=== PATIENT | female | born 1990 | race Caucasian/White ===

== ENCOUNTER 2020-03-09 07:49 | Inpatient (IN) | payer OTHER, SELFPAY ==
[2020-03-09] VITALS (106 sets, daily range): BP systolic 103–142; BP diastolic 42–120; PULSE 82–152; RESP 18; TEMP 36.7–36.9; O2SAT 98–100; BMI 24.2
--- NOTE | 2020-03-09 08:06 | PM.IMHP ---
H&P: HPI History of Present Illness Chief complaint: leaking Narrative: Camila Barron is a 30 year old female whose last menstrual period is unknown, but EDC is 03/20/2020, based on a 9 week ultrasound presents at 38 weeks gestation in active labor. She spontaneous ruptured at 6:45 a.m. and she is positive for group B strep. Her has been complicated by anxiety she has been on fluoxetine 20 mg and move that up to 40 she also takes Xanax 0.2 0.5 p.r.n. b.i.d. she is also Rh negative and will require RhoGAM workup Review of Systems Review of Systems: All systems reviewed & are unremarkable except as noted in HPI and below Meds Home Medications and Allergies Allergies Allergy/AdvReac Type Severity Reaction Status Date / Time sulfamethoxazole Allergy Mild Rash Verified 10/09/17 11:19 trimethoprim Allergy Mild Rash Verified 10/09/17 11:19 Exam Const: General: no acute distress Eyes: General: appearance normal, both eyes and all related structures Neck: Neck: supple and no JVD Thyroid: thyroid normal Resp: Effort & Inspection: normal respiratory effort Auscultation: clear to auscultation bilaterally Cardio: Rate: regular rate Rhythm: regular rhythm GI: Inspection: normal to inspection (Gravid uterus. heart tones are reassuring) : General: Yes other (Cervix by RN exam 3cm. Clear fluid seen. FHTs are reassuring) Skin: General skin exam: no rashes or lesions noted Extrem: General: normal to inspection and no edema Psych: Mental Status: mental status grossly normal Affect: normal affect Assessment and Plan Additional Plan Impression: Term with spontaneous rupture membranes. Positive group B strep. Plan: Spontaneous vaginal delivery is expected. Group B strep prophylaxis will be undertaken. Pitocin augmentation will be considered
[2020-03-09] MEDS: AMPICILLIN 2 GM/NS 100 ML 2 GM/100 ML BAG IVPB (08:40)
[2020-03-09] MEDS: LACTATED RINGERS 1,000 ML 125 ML IV CONT ×2 (08:40→11:00)
--- NOTE | 2020-03-09 08:53 | LDADM ---
This patient, Camila Barron, was admitted to Labor/Delivery/Recovery 106 on 03/09/20 at 07:50. Plans for labor, pain management and were discussed with patient. Patient/family oriented to hospital policies and general routines including ID bracelet, bed and alarms, visiting hours, pain management, procedures, bathroom and other care routines, personal items, smoking policy, room service/diet and guest tray routines, security routines, and visiting hours. Patient/Family are encouraged to report perceived risks to care and to ask questions if they do not understand what they are told or what they should do. See OBIX for further documentation.
[2020-03-09 09:20] LABS: Basophils Absolute Auto 0.1 K/mm3 (0.0-0.1); Basophils Percent Auto 0.5 % (0.2-1.2); Eosinophils Absolute Auto 0.1 K/mm3 (0-0.3); Eosinophils Percent Auto 0.9 % (0-4.4); Hematocrit 32.8 % (37.0-47.0); Hemoglobin 10.4 g/dL (12.0-15.0); Immature Granulocyte Absolute 0.24 K/mm3 (0.00-0.031); Immature Granulocyte Percent A 1.9 % (0-0.5); Lymphocytes Absolute Auto 2.89 K/mm3 (0.9-3.2); Lymphocytes Percent Auto 22.6 % (18.3-44.2); Mean Corpuscular HGB Conc 31.7 g/dl (32-36); Mean Corpuscular Hemoglobin 26.8 pg (26-34); Mean Corpuscular Volume 84.5 fl (80-100); Mean Platelet Volume 11.9 fl (7.4-10.4); Monocytes Absolute Auto 1.2 K/mm3 (0.1-0.6); Monocytes Percent Auto 9.6 % (2.6-8.5); Neutrophils Absolute Auto 8.3 K/mm3 (1.3-6.7); Neutrophils Percent Auto 64.5 % (45.5-73.1); Platelet Count Result 238 k/mm3 (150-375); Red Blood Count 3.88 M/mm3 (4.2-5.4); Red Cell Distribution Width 14.1 % (11.5-14.5); White Blood Count 12.8 K/mm3 (4.5-10.0)
[2020-03-09] MEDS: AMPICILLIN 1 GM/NS 50 ML 1 GM/50 ML BAG IVPB (12:11)
[2020-03-09] MEDS: OXYTOCIN 30 UNITS/NS 500 ML 30 UNITS/500 ML BAG IV CONT (12:35)
--- NOTE | 2020-03-09 13:02 | PM.OBPNVD ---
OB - PN: Subj Subjective Date/time seen: 03/09/20 13:02 cx 4 by rn exam fhts reassuring epidural in OB - PN: Obj Data Labs CBC & Chem 7: 03/09/20 08:30 Labs: Laboratory Results - last 24 hr 03/09/20 03/09/20 08:30 08:30 WBC 12.8 H RBC 3.88 L Hgb 10.4 L Hct 32.8 L MCV 84.5 MCH 26.8 MCHC 31.7 L RDW 14.1 Plt Count 238 MPV 11.9 H Immature Gran % (Auto) 1.9 H Neut % (Auto) 64.5 Lymph % (Auto) 22.6 [place] % (Auto) 9.6 H Eos % (Auto) 0.9 Baso % (Auto) 0.5 Lymph # (Auto) 2.89 [place] # (Auto) 1.2 H Eos # (Auto) 0.1 Baso # (Auto) 0.1 Abs Immat Gran (auto) 0.24 H Absolute Neuts (auto) 8.3 H Absolute Nucleated RBC 0.0 Nucleated RBC % 0.0 Blood Type A Negative Antibody Screen Negative OB - PN A/P Time Spent With Patient Time: Total time spent is greater than 50% in coordination of care (as documented) at patient's floor/unit and/or counseling patient:
--- NOTE | 2020-03-09 15:25 | P.PNOB_ITS ---
OB - PN: Subj Subjective Date/time seen: 03/09/20 15:25 cx compltete fhts reassuring OB - PN: Obj Data Labs CBC & Chem 7: 03/09/20 08:30 Labs: Laboratory Results - last 24 hr 03/09/20 03/09/20 08:30 08:30 WBC 12.8 H RBC 3.88 L Hgb 10.4 L Hct 32.8 L MCV 84.5 MCH 26.8 MCHC 31.7 L RDW 14.1 Plt Count 238 MPV 11.9 H Immature Gran % (Auto) 1.9 H Neut % (Auto) 64.5 Lymph % (Auto) 22.6 [place] % (Auto) 9.6 H Eos % (Auto) 0.9 Baso % (Auto) 0.5 Lymph # (Auto) 2.89 [place] # (Auto) 1.2 H Eos # (Auto) 0.1 Baso # (Auto) 0.1 Abs Immat Gran (auto) 0.24 H Absolute Neuts (auto) 8.3 H Absolute Nucleated RBC 0.0 Nucleated RBC % 0.0 Blood Type A Negative Antibody Screen Negative OB - PN A/P Time Spent With Patient Time: Total time spent is greater than 50% in coordination of care (as documented) at patient's floor/unit and/or counseling patient:
--- NOTE | 2020-03-09 15:55 | PM.OBPRVD ---
OB - Delivery Note Procedure Delivery date: 03/09/20 Intrapartal events: None Induction method: none Delivery augmentation: pitocin Delivery monitor: external FHT Route of delivery: Episiotomy description: None Laceration description: Perineal - 1st Degree Delivery repair: vicryl Specimen: No Estimated blood loss (mL): 157 Anesthesia type: Epidural Disposition: floor Complications: amp x2 for gbs Baby Date of : 03/09/20 Time of : 15:42 Weeks of gestation at delivery: 38 gender: Male Weight (pounds): 6 Weight (ounces): 14 presentation: vertex position: Right Occiput Anterior Placenta delivery description: Spontaneous cord vessel description: 3 Vessels score one minute: 9 score five minutes: 9
[2020-03-09] MEDS: METHYLERGONOVINE MALEATE 0.2 MG/ML VIAL IM (15:57)
[2020-03-09] MEDS: MISOPROSTOL 200 MCG TABLET 800 MCG (16:18)
[2020-03-09] MEDS: ONDANSETRON INJ 4 MG/2 ML VIAL IV PUSH (17:08)
[2020-03-09] MEDS: IBUPROFEN 600 MG TABLET PO (18:12)
--- NOTE | 2020-03-09 19:44 | OBPPTRN ---
Patient transferred to post room #288 via wheelchair. Support person present. Oriented to unit, room, information board, rooming in, admission packet and security measures. Patient verbalizes understanding. arrived in crib with patient to floor
[2020-03-09] MEDS: ALPRAZOLAM 0.5 MG TABLET PO (19:52)
[2020-03-10] MEDS: IBUPROFEN 600 MG TABLET PO ×4 (00:45→20:54)
[2020-03-10] MEDS: ACETAMINOPHEN 325 MG TABLET 650 MG PO (04:52)
[2020-03-10 05:21] LABS: Hematocrit 26.3 % (37.0-47.0); Hemoglobin 8.5 g/dL (12.0-15.0)
[2020-03-10 06:10] LABS: HIV 1/2 Ab P24 Ag Result Negative (Negative)
--- NOTE | 2020-03-10 06:40 | P.PNOB_ITS ---
OB - PN: Subj Subjective Date/time seen: 03/10/20 06:40 Patient comments: no complaints and pain well controlled baby status: doing well and nursing well OB - PN: Obj Data Labs CBC & Chem 7: 03/10/20 04:48 Labs: Laboratory Results - last 24 hr 03/09/20 03/09/20 03/10/20 08:30 08:30 04:48 WBC 12.8 H RBC 3.88 L Hgb 10.4 L 8.5 L Hct 32.8 L 26.3 L MCV 84.5 MCH 26.8 MCHC 31.7 L RDW 14.1 Plt Count 238 MPV 11.9 H Immature Gran % (Auto) 1.9 H Neut % (Auto) 64.5 Lymph % (Auto) 22.6 [place] % (Auto) 9.6 H Eos % (Auto) 0.9 Baso % (Auto) 0.5 Lymph # (Auto) 2.89 [place] # (Auto) 1.2 H Eos # (Auto) 0.1 Baso # (Auto) 0.1 Abs Immat Gran (auto) 0.24 H Absolute Neuts (auto) 8.3 H Absolute Nucleated RBC 0.0 Nucleated RBC % 0.0 HIV 1&2 Ab/P24 Ag 4thGn Blood Type A Negative Antibody Screen Negative 03/10/20 04:48 WBC RBC Hgb Hct MCV MCH MCHC RDW Plt Count MPV Immature Gran % (Auto) Neut % (Auto) Lymph % (Auto) [place] % (Auto) Eos % (Auto) Baso % (Auto) Lymph # (Auto) [place] # (Auto) Eos # (Auto) Baso # (Auto) Abs Immat Gran (auto) Absolute Neuts (auto) Absolute Nucleated RBC Nucleated RBC % HIV 1&2 Ab/P24 Ag 4thGn Negative Blood Type Antibody Screen OB - PN A/P Plan day: 1 Plan: routine care Time Spent With Patient Time: Total time spent is greater than 50% in coordination of care (as documented) at patient's floor/unit and/or counseling patient: Time with patient: less than 15 minutes Review of Systems Review of Systems: All systems reviewed & are unremarkable except as noted in HPI and below Exam Const: General: no acute distress Eyes: General: appearance normal, both eyes and all related structures Neck: Neck: supple and no JVD Thyroid: thyroid normal Resp: Effort & Inspection: normal respiratory effort Auscultation: clear to auscultation bilaterally Cardio: Rate: regular rate Rhythm: regular rhythm GI: Inspection: normal to inspection (fundus firm) : General: Yes bladder normal to palpation External Female Exam: normal external appearance Speculum Exam - Vagina: normal vaginal discharge and No vaginal bleeding Speculum Exam - Cervix: nontender Bimanual exam- vagina & uterus: bladder normal to palpation and No Cervical tenderness present OB/external & speculum: No vaginal bleeding Skin: General skin exam: no rashes or lesions noted Extrem: General: normal to inspection and no edema Psych: Mental Status: mental status grossly normal Affect: normal affect
[2020-03-10 08:20] VITALS: BP 94/45; PULSE 94; RESP 18; TEMP 36.9; O2SAT 98
[2020-03-10] MEDS: POLYSACCHARIDE IRON COMPLEX 150 MG CAPSULE PO ×2 (08:49→17:58)
[2020-03-10] MEDS: FLUOXETINE HCL 20 MG CAP PO (08:50)
[2020-03-10] MEDS: DOCUSATE SODIUM 100 MG CAPSULE PO ×2 (08:50→17:58)
--- NOTE | 2020-03-10 09:16 | WPDANLDPN2 ---
Anes-Prog Note L&D Date/Time: 03/10/20 09:16 Comfortable throughout: labor and delivery Neuraxial method: epidural Epidural/Spinal procedure site: clean & non-tender Neuro status: Neuro function grossly intact. Cardiovascular status: normal Respiratory status: normal Airway patency: baseline Mental status: baseline Post-Op hydration status: normal Vital Signs: Last Vital Signs Temp 36.7 C 03/09/20 19:45 Pulse 82 03/09/20 21:00 Resp 18 03/09/20 19:45 BP 114/52 L 03/09/20 21:00 Pulse Ox 100 03/09/20 15:22 I/O: Intake & Output 03/09/20 03/10/20 03/10/20 23:59 07:59 15:59 Intake Total 1100 Output Total 363 Balance 737 Post-procedural complaints: none Patient feedback: Patient satisfied with anesthetic care.
--- NOTE | 2020-03-10 10:00 | PC.NURSE ---
Consult with pt., mother is listed as breast and bottle feeding. Mother states she may want to pump and bottle feed. Mother states she breast and bottle fed with first child for a few months and found it to be stressful. Mother reports she has anxiety and has another young child at home and does not believe she can keep up with both. Mother states she really wants to bottle feed, encouraged mother that it is her choice. Mother will formula feed only. Discussed engorgement and relief if needed.
[2020-03-10 11:25] LABS: Rapid Plasma Reagin Non-Reactive (NonReactive)
--- NOTE | 2020-03-10 16:37 | PC.NURSE ---
0807 Pt asked to wait to take her a.m. Xanax because I'm tired . Nurse agreed. medication was offered several other times and pt refused; asked to take it tonight. Nurse agreed. a.m. dose wasted.
[2020-03-10 19:40] VITALS: BP 104/59; PULSE 95; RESP 16; TEMP 36.7; O2SAT 100
[2020-03-11] MEDS: IBUPROFEN 600 MG TABLET PO (05:04)
--- NOTE | 2020-03-11 06:36 | PM.OBPNVD ---
OB - PN: Subj Subjective Date/time seen: 03/11/20 06:36 Patient comments: no complaints and pain well controlled baby status: doing well and nursing well OB - PN: Obj Data Labs CBC & Chem 7: 03/10/20 04:48 Labs: Laboratory Results - last 24 hr 03/09/20 08:30 RPR Non-reactive OB - PN A/P Plan day: 2 Plan: routine care, discharge home and follow up 6 weeks Time Spent With Patient Time: Total time spent is greater than 50% in coordination of care (as documented) at patient's floor/unit and/or counseling patient: Time with patient: less than 15 minutes Review of Systems Review of Systems: All systems reviewed & are unremarkable except as noted in HPI and below Exam Const: General: no acute distress Eyes: General: appearance normal, both eyes and all related structures Neck: Neck: supple and no JVD Thyroid: thyroid normal Resp: Effort & Inspection: normal respiratory effort Auscultation: clear to auscultation bilaterally Cardio: Rate: regular rate Rhythm: regular rhythm GI: Inspection: non-distended GI Palp: Yes Soft to palpation, No Tenderness to palpation present (GI) and No Guarding due to palpation present (GI) Auscultation: normal bowel sounds : General: Yes bladder normal to palpation External Female Exam: normal external appearance Speculum Exam - Vagina: normal vaginal discharge and No vaginal bleeding Speculum Exam - Cervix: nontender Bimanual exam- vagina & uterus: bladder normal to palpation and No Cervical tenderness present OB/external & speculum: No vaginal bleeding Skin: General skin exam: no rashes or lesions noted Extrem: General: normal to inspection and no edema Psych: Mental Status: mental status grossly normal Affect: normal affect
--- NOTE | 2020-03-11 06:37 | P.DS_ITS ---
DS: Diagnosis Admitting Diagnosis Admitting Diagnosis: term DS: Summary Time Spent with Patient Time attestation: Total time spent providing and/or coordinating discharge services: Exam Const: General: no acute distress Eyes: General: appearance normal, both eyes and all related structures Neck: Neck: supple and no JVD Thyroid: thyroid normal Resp: Effort & Inspection: normal respiratory effort Auscultation: clear to auscultation bilaterally Cardio: Rate: regular rate Rhythm: regular rhythm GI: Inspection: non-distended GI Palp: Yes Soft to palpation, No Tenderness to palpation present (GI) and No Guarding due to palpation present (GI) A uscultation: normal bowel sounds : General: Yes bladder normal to palpation External Female Exam: normal external appearance Speculum Exam - Vagina: normal vaginal discharge and No vaginal bleeding Speculum Exam - Cervix: nontender Bimanual exam- vagina & uterus: bladder normal to palpation and No Cervical tenderness present OB/external & speculum: No vaginal bleeding Skin: General skin exam: no rashes or lesions noted Extrem: General: normal to inspection and no edema Psych: Mental Status: mental status grossly normal Affect: normal affect DS: Data Data Completed and Pending Labs on day of discharge: Labs from last 24 hours 03/09/20 08:30 RPR Non-reactive Discharge Plan Discharge Attending physician on discharge: Hakan Gresham Discharging Clinician: Hakan Gresham Patient Disposition: Home, Self-Care Activity: may shower, no straining, may drive after 2 weeks and pelvic rest Diet: heart healthy Wound Care Instructions: follow printed instructions Patient Instructions: Antibiotic Form Stand Alone Forms: General Discharge Information Follow-up/Referrals: Hakan Gresham MD [Physician] - Discharge Medications: Continued alprazolam 0.5 mg tablet 0.5 mg PO BID RF: 0 fluoxetine 20 mg capsule 20 mg PO DAILY RF: 0 Date of admission: 03/09/20 07:50 Primary Care Provider: CathyMyles Admitting Provider: Hakan Gresham Attending physician on admission: Hakan Gresham
[2020-03-11 08:25] VITALS: BP 113/71; PULSE 88; RESP 18; TEMP 36.6; O2SAT 100
[2020-03-11] MEDS: MULTIVIT/MIN/PREN/FOL AC/IRON TABLET 1 TAB PO (08:31)
[2020-03-11] MEDS: DOCUSATE SODIUM 100 MG CAPSULE PO (08:32)
[2020-03-11] MEDS: POLYSACCHARIDE IRON COMPLEX 150 MG CAPSULE PO (08:32)
[2020-03-11] MEDS: WITCH HAZEL 40 PADS 1 PAD TOPICAL (08:33)
[2020-03-14 09:41] VITALS: BP 111/58; PULSE 96; RESP 18; TEMP 36.4
--- NOTE | 2020-03-14 16:24 | PM.IMHP ---
H&P: HPI History of Present Illness Chief complaint: ROM Narrative: Camila Barron is a 30 year old female was week out from delivery is admitted for suction D&C secondary bleeding. Her last was complicated by bleeding. She had heavier bleeding about 5 days out. Ultrasound shows questionable thickened endometrium consistent with possible retained placenta risks and benefits of the procedure reviewed Review of Systems Review of Systems: All systems reviewed & are unremarkable except as noted in HPI and below PMFSH Social History Social History Smoking status: Former smoker Substance use: never Gender identity (if verbalized by the patient): Female Spiritual care concerns: No Meds Home Medications and Allergies Home Medications Medication Instructions Recorded Confirmed Type alprazolam 0.5 mg PO BID 03/09/20 03/09/20 History fluoxetine 20 mg PO DAILY 03/09/20 03/09/20 History Allergies Allergy/AdvReac Type Severity Reaction Status Date / Time sulfamethoxazole Allergy Mild Rash Verified 10/09/17 11:19 trimethoprim Allergy Mild Rash Verified 10/09/17 11:19 Vital Signs Vital Signs - 24 hr 03/14/20 09:41 Temperature 97.6 F Pulse Rate 96 Respiratory Rate 18 Blood Pressure 111/58 L Exam Const: General: no acute distress Eyes: General: appearance normal, both eyes and all related structures Neck: Neck: supple and no JVD Thyroid: thyroid normal Resp: Effort & Inspection: normal respiratory effort Auscultation: clear to auscultation bilaterally Cardio: Rate: regular rate Rhythm: regular rhythm GI: Inspection: non-distended GI Palp: Yes Soft to palpation, No Tenderness to palpation present (GI) and No Guarding due to palpation present (GI) Auscultation: normal bowel sounds : General: Yes bladder normal to inspection and Yes other ( uterus is enlarged and state. It is somewhat tender) Speculum Exam - Cervix: Cervical os open Skin: General skin exam: no rashes or lesions noted Extrem: General: normal to inspection and no edema Psych: Mental Status: mental status grossly normal Affect: normal affect Assessment and Plan Additional Plan impression: bleeding Plan: Suction dilatation curettage
== END 2020-03-11 12:22 | disposition home or self-care (01) | DRG 560 ==
LOC: ANHLDR 08:17 → ANHOB2 18:48
PROVIDERS: Admitting Provider Obstetrics & Gynecology; PCP Family Medicine; Visit Provider Obstetrics & Gynecology
DX: O99.824 Streptococcus B carrier state complicating childbirth (principal); Z37.0 Single live birth; Z3A.38 38 weeks gestation of pregnancy; O36.0930 Maternal care for other rhesus isoimmunization, third trimester, not applicable or unspecified; O70.0 First degree perineal laceration during delivery; O36.8330 Maternal care for abnormalities of the fetal heart rate or rhythm, third trimester, not applicable or unspecified; O99.344 Other mental disorders complicating childbirth; F41.9 Anxiety disorder, unspecified
CPT/HCPCS: 36415; 84112; 85014; 85018; 85025; 86592; 86703; 86850; 86900; 86901; A9270; G0432; J0290; J2210; J2405; J2590; J2795; J7120

== ENCOUNTER 2020-03-16 00:44 | Day surgery (SDC) | payer OTHER, SELFPAY ==
[2020-03-15 15:04] VITALS: BMI 21.9
--- NOTE | 2020-03-15 17:46 | WPDANESEPP ---
Anes - Eval Pre Procedure Procedure: Operation Date: 03/16/20 08:30 Proposed Procedures p Suction Dilation and Curettage - Hakan Gresham MD Date/Time: 03/15/20 17:46 Pre Op Diagnosis: Retained products of conception Patient Data Age: 30 Gender: F Height: 5 ft 2 in Weight: 54.5 kg Allergies Allergy/AdvReac Type Severity Reaction Status Date / Time sulfamethoxazole Allergy Mild Rash Verified 03/15/20 15:14 trimethoprim Allergy Mild Rash Verified 03/15/20 15:14 Home Medications Medication Instructions Recorded Confirmed Type alprazolam 0.5 mg PO BID 03/09/20 03/15/20 History fluoxetine 20 mg PO DAILY 03/09/20 03/15/20 History cephalexin 500 mg PO BID 03/15/20 03/15/20 History Patient hx anesthesia problems: none Family hx anesthesia problems: none [facility] Past Medical History Medical History (Updated 03/15/20 @ 17:47 by Gildardo Lopez CRNA) Abnormal uterine bleeding (AUB) Anxiety Products of conception, retention Social History Social History Smoking status: Former smoker Substance use: never Gender identity (if verbalized by the patient): Female Spiritual care concerns: No Exam Day of Procedure 03/15/20 17:46
--- NOTE | 2020-03-16 06:49 | WPDHPUPDATE1 ---
History and Physical Update Update Date/Time: 03/16/20 06:49 History and Physical has been reviewed, including an updated exam of the patient. There are NO changes in the patient's condition. Risks, benefits, and alternatives have been discussed and questions answered. Patient agrees to proceed with procedure.
[2020-03-16 07:00] VITALS: BP 102/62; PULSE 105; RESP 20; TEMP 36.7; O2SAT 100
[2020-03-16] MEDS: LACTATED RINGERS 1,000 ML 30 ML IV CONT (07:00)
--- NOTE | 2020-03-16 07:24 | P.PNAN_ITS ---
Anes - Eval Final PreProcedure Day of Procedure 03/16/20 07:24 Patient weight: normal Heart: regular rate and rhythm Lungs: clear to auscultation Airway: Mallampati scale class 1 Neurological: alert and oriented Last oral intake: >/= 8 hours ASA classification: II Emergent: no Anesthetic plan: proceed Anesthesia type and monitoring: general GIVS and standard monitoring Informed Consent: The patient's anesthetic plan and its attendant risks and be nefits were discussed with the patient/family/POA. Questions were solicited and answers provided to the satisfaction of the patient/family/POA.
[2020-03-16] MEDS: ceFAZolin SODIUM 1 GM VIAL IV PUSH (08:51)
[2020-03-16] MEDS: KETOROLAC 30 MG/ML VIAL (*BKC) IV PUSH (08:53)
[2020-03-16 09:02] VITALS: BP 95/36; PULSE 76; RESP 12; O2SAT 99
--- NOTE | 2020-03-16 09:02 | PM.PROC ---
Procedure Note - Detailed Date of procedure: 03/16/20 Pre-op diagnosis: Retained products of conception Surgeon: Hakan Gresham MD Postop diagnosis: Retained products conception Procedure: Suction dilatation curettage EBL: 25cc Anesthesia: IV sedation and local Findings: Uterus sounded to 10cm/small amount of retained placenta Complications: None Description of procedure the patient was prepped and draped in the normal sterile fashion placed in the dorsal lithotomy position. Under adequate IV sedation weighted speculum was placed in posterior fornix of vagina. Anterior lip of the cervix was grasped with a single-tooth tenaculum. 2.5cc of 1% xylocaine anesthesia placed at 2, 4, 6, 8:00 a.m. in the cervix. Uterus sounded to 10cm. Serial dilatation with fragmented dilators performed. This was followed by passing the 10. Curved suction curette removing a small amount of irregular tissue. When a good grating sound was heard. No further instruments station was necessary. The instruments removed. All sponge, needle, instrument counts were correct. Blood loss was estimated at25cc. The patient went to recovery in satisfactory condition
[2020-03-16 09:30] VITALS: BP 114/72; PULSE 79; RESP 16
[2020-03-16 10:00] VITALS: BP 112/65; PULSE 74; RESP 14
--- NOTE | 2020-03-16 10:00 | SUR.PHASEII ---
0902 - dr. med magallon in room talking with family
== END 2020-03-16 10:12 | disposition home or self-care (01) ==
PROVIDERS: PCP Family Medicine; Visit Provider Obstetrics & Gynecology
PROC: (CPT 59160; principal; 2020-03-16 08:30)
DX: O72.2 Delayed and secondary postpartum hemorrhage (principal); F41.9 Anxiety disorder, unspecified; Z87.891 Personal history of nicotine dependence
CPT/HCPCS: 59160; 88305; A9270; J0690; J1100; J1885; J2250; J2405; J2704; J3010; J7120

== ENCOUNTER 2020-03-19 13:40 | Emergency (ER) | payer OTHER, SELFPAY ==
--- NOTE | ~2020-03-19 | US_ITS ---
EXAMINATION: US pelvic complete DATE: 03/19/2020 14:42 INDICATION: vaginal bleeding. TECHNIQUE: Multiple transabdominal sonographic images of the pelvis were obtained. COMPARISON: None. FINDINGS: The uterus measures 13.2 x 8.0 x 6.5 cm. There is no free fluid in the pelvis. The endometrial comple x measures 3.0 cm in thickness. There is no visible internal vascular flow in the endometrial complex . The right ovary measures 4.3 x 2.9 x 2.0 cm. The left ovary measures 2.7 x 1.7 x 2.1 cm. IMPRESSION: 1. Thickened endometrial complex suspicious for retained products of conception. Reviewed, dictated and finalized at location A. IMPRESSION: 1. Thickened endometrial complex suspicious for retained products of conception .
[2020-03-19 13:50] VITALS: BP 111/64; PULSE 100; RESP 20; TEMP 36.8; O2SAT 100
--- NOTE | 2020-03-19 14:19 | ED.GENADULT ---
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 Patient states she had vaginal delivery on 03/09/20, but she required a D and C on 03/16/20 due to heavy vaginal bleeding, retained products of conceptions. She has come to ER today because she has intermittent episodes of heavy bleeding. She states when she stands up or goes to restroom she developed what appears to be large amount of bleeding. She is changing her pad every 1-2 hours. She denies dizziness or lightheadedness. Related Data Home Medications Medication Instructions Recorded Confirmed alprazolam 0.5 mg PO BID 03/09/20 03/16/20 fluoxetine 20 mg PO DAILY 03/09/20 03/16/20 cephalexin 500 mg PO BID 03/15/20 03/16/20 ibuprofen 400 mg PO Q6H PRN 03/19/20 03/19/20 Allergies Allergy/AdvReac Type Severity Reaction Status Date / Time sulfamethoxazole Allergy Mild Rash Verified 03/16/20 07:26 trimethoprim Allergy Mild Rash Verified 03/16/20 07:26 Review of Systems Constitutional: Constitutional: Denies chills, Denies fever(s) and Denies weakness ENT: Denies dizziness Gastrointestinal: Gastrointestinal: Denies abdominal pain and Denies nausea Genitourinary: Genitourinary: Reports abnormal vaginal bleeding [facility] Past Medical History Medical History Abnormal uterine bleeding (AUB) Anxiety Products of conception, retention Social History Social History Smoking status: Former smoker Substance use: never Gender identity (if verbalized by the patient): Female Spiritual care concerns: No Exam Const: General: no acute distress and alert Orientation/consciousness: patient oriented x3 Eyes: Pupils: Equal, round and reactive pupils present EOM: EOMs intact bilaterally Chest: Chest palpation & inspection: normal inspection of the chest Resp: Effort & Inspection: normal respiratory effort Cardio: Rate: regular rate Rhythm: regular rhythm Heart sounds: no murmurs GI: GI Palp: Yes Soft to palpation and No Tenderness to palpation present (GI) : Speculum Exam - Vagina: normal appearance of the vagina Other: no clots, no blood pooling, dark blood on cervix but no active bleeding Course Reevaluation(s) Reevaluation #1: I have discsused discharge plan with patient. She was given return precautions . Date: 03/19/20 Time: 16:07 Consultations Consultation #1: I Discussed case , labs, ultrasound with Dr. Goode. Patient is stable at this time so she is stable for discharge. Patient should call on Saturday to get outpatient D and C. Date: 03/19/20 Time: 15:45 Vital Signs Vital signs: Vital Signs Temperature 98.2 F 03/19/20 13:50 Pulse Rate 100 03/19/20 13:50 Respiratory Rate 20 03/19/20 13:50 Blood Pressure 111/64 03/19/20 13:50 Pulse Oximetry 100 03/19/20 13:50 Temperature 98.6 F 03/19/20 16:14 Pulse Rate 93 03/19/20 16:14 Respiratory Rate 16 03/19/20 16:14 Blood Pressure 106/67 03/19/20 16:14 Pulse Oximetry 100 03/19/20 16:14 Medical Decision Making Vital Signs Vital Signs: Vital Signs Temperature 98.2 F 03/19/20 13:50 Pulse Rate 100 03/19/20 13:50 Respiratory Rate 20 03/19/20 13:50 Blood Pressure 111/64 03/19/20 13:50 Pulse Oximetry 100 03/19/20 13:50 Temperature 98.6 F 03/19/20 16:14 Pulse Rate 93 03/19/20 16:14 Respiratory Rate 16 03/19/20 16:14 Blood Pressure 106/67 03/19/20 16:14 Pulse Oximetry 100 03/19/20 16:14 Lab Data Result diagrams: 03/19/20 14:52 Labs: Lab Results 03/19/20 Range/Units 14:52 WBC 10.5 H (4.5-10.0) K/mm3 RB
[2020-03-19 15:16] LABS: Basophils Absolute Auto 0.1 K/mm3 (0.0-0.1); Basophils Percent Auto 0.6 % (0.2-1.2); Eosinophils Absolute Auto 0.2 K/mm3 (0-0.3); Eosinophils Percent Auto 1.4 % (0-4.4); Hematocrit 31.2 % (37.0-47.0); Hemoglobin 10.1 g/dL (12.0-15.0); Immature Granulocyte Absolute 0.09 K/mm3 (0.00-0.031); Immature Granulocyte Percent A 0.9 % (0-0.5); Lymphocytes Absolute Auto 2.84 K/mm3 (0.9-3.2); Lymphocytes Percent Auto 27.1 % (18.3-44.2); Mean Corpuscular HGB Conc 32.4 g/dl (32-36); Mean Corpuscular Hemoglobin 26.8 pg (26-34); Mean Corpuscular Volume 82.8 fl (80-100); Mean Platelet Volume 9.4 fl (7.4-10.4); Monocytes Absolute Auto 0.7 K/mm3 (0.1-0.6); Monocytes Percent Auto 6.9 % (2.6-8.5); Neutrophils Absolute Auto 6.6 K/mm3 (1.3-6.7); Neutrophils Percent Auto 63.1 % (45.5-73.1); Platelet Count Result 398 k/mm3 (150-375); Red Blood Count 3.77 M/mm3 (4.2-5.4); Red Cell Distribution Width 13.8 % (11.5-14.5); White Blood Count 10.5 K/mm3 (4.5-10.0)
[2020-03-19 16:14] VITALS: BP 106/67; PULSE 93; RESP 16; TEMP 37; O2SAT 100
== END 2020-03-19 16:16 | disposition home or self-care (01) ==
PROVIDERS: Emergency Provider General Practice; PCP Family Medicine
DX: O72.2 Delayed and secondary postpartum hemorrhage (principal); O99.345 Other mental disorders complicating the puerperium; F41.9 Anxiety disorder, unspecified; Z87.891 Personal history of nicotine dependence
CPT/HCPCS: 36415; 76856; 85025; 99284

== ENCOUNTER 2020-12-11 10:38 | Emergency (ER) | payer OTHER, SELFPAY ==
--- NOTE | ~2020-12-11 | XR_ITS ---
EXAMINATION: XR chest 2V DATE: 12/11/2020 12:56 INDICATION: Chest pain and shortness of breath TECHNIQUE: PA and lateral views of the chest are obtained. COMPARISON: None available FINDINGS: The lungs are free of acute opacities. There is no pleural effusion or pneumothorax. The ca rdiomediastinal silhouette is normal. The visualized bones and soft tissues are unremarkable. IMPRESSION: 1. No acute cardiopulmonary abnormality. Reviewed, dictated and finalized at location A. D [employer]
[2020-12-11 10:50] VITALS: BP 104/60; PULSE 112; RESP 24; TEMP 36.3; O2SAT 100
--- NOTE | 2020-12-11 10:59 | ED.SOB ---
HPI - SOB/Dyspnea General Chief Complaint: Upper Respiratory Infection Stated Complaint: sob Time Seen by Provider: 12/11/20 10:59 Source: patient Mode of arrival: ambulatory Limitations: no limitations History of Present Illness HPI Narrative: 30-year-old woman comes in today complaining of chest pain, shortness of breath and palpitations that occurred while driving this morning. She states it started about 1 hour prior to presentation. She has a history of anxiety and states that she might have had asthma attack. She did not get lightheaded, dizzy or have syncope. She denies any recent cough or cold symptoms, fever, headache, nausea, vomiting, diarrhea or abdominal pain. MD elicited complaint: shortness of breath and chest pain Onset (ago): hour(s) (1) Context: anxiety Timing: constant and improved Severity: moderate Exacerbating factors: nothing Relieving factors: nothing Associated symptoms: chest pain Related Data Home oxygen amount: none Home Medications Medication Instructions Recorded Confirmed alprazolam 1 mg PO BID 03/09/20 12/11/20 fluoxetine 20 mg PO DAILY 03/09/20 12/11/20 Allergies Allergy/AdvReac Type Severity Reaction Status Date / Time sulfamethoxazole Allergy Mild Rash Verified 03/16/20 07:26 trimethoprim Allergy Mild Rash Verified 03/16/20 07:26 Review of Systems Constitutional: Constitutional: Denies chills, Denies fever(s) and Denies weakness Eyes: Eyes: Denies change in vision and Denies photophobia ENT: Denies dysphagia, Denies nasal congestion and Denies sore throat Cardiovascular: Cardiovascular: Denies chest pain and Denies radiating jaw, neck or arm pain Respiratory: Respiratory: Denies cough, Denies dyspnea and Denies wheezing Gastrointestinal: Gastrointestinal: Denies diarrhea, Denies nausea and Denies vomiting Genitourinary: Genitourinary: Denies nocturia and Denies dysuria Integumentary/Breasts: Skin/Breast: Denies pruritus, Denies erythema and Denies rash Neurologic: Denies vertigo, Denies dizziness and Denies syncope Hematologic/Lymphatic: Hematologic/Lymphatic: Denies easy bleeding and Denies easy bruising Allergic/Immunologic: Allergic/Immunologic: Denies lip swelling, Denies throat swelling and Denies tongue swelling [facility] Past Medical History Medical History (Updated 12/11/20 @ 12:35 by Salo Solis MD) Abnormal uterine bleeding (AUB) Anxiety Products of conception, retention Social History Social History Smoking status: Former smoker Substance use: never Gender identity (if verbalized by the patient): Female Spiritual care concerns: No Exam Const: General: healthy appearing and alert Nutritional Appearance: well nourished Orientation/consciousness: patient oriented x3 Other: Mild acute distress. HENMT: Ears: external ears normal, TM's normal bilaterally and EAC's normal Throat: posterior oropharynx normal and uvula midline Eyes: Conjunctivae: conjunctivae normal Pupils: Equal, round and reactive pupils present EOM: EOMs intact bilaterally Resp: Effort & Inspection: normal respiratory effort and not labored Auscultation: clear to auscultation bilaterally, no rales, no rhonchi and no wheezes Cardio: Rate: regular rate Rhythm: regular rhythm Heart sounds: no murmurs Skin: General skin exam: No normal color, jaundice and pallor Rashes: rash noted Neuro: General: patient oriented x3, moves all extremities, no focal motor deficits and CN's II-XI intact bilaterally Speech: normal speech Gait exam (Neuro): Normal gait present Extrem: General: normal to inspection and no clubbing, cyanosis or edema Psych: Mental Status: mental status grossly normal Affect: Anxious affect present Thought content: Yes Normal thought content present Course Course Emergency Course: Patient's symptoms gradually abating in her heart rate has returned to normal. Patient states that she feels
--- NOTE | 2020-12-11 11:06 | ECG_ITS ---
Measurements Intervals [place] Rate: 107 P: 59 [place]: 171 QRS: 79 QRSD: 79 T: 41 QT: 318 QTc: 426 Interpretive Statements SINUS TACHYCARDIA NONSPECIFIC T-WAVE ABNORMALITY- INFERIOR LEADS ABNORMAL ECG Electronically Signed On 12-12-2020 7:19:06 [employer] by Navin Leonard D.O.
[2020-12-11 11:19] LABS: Basophils Absolute Auto 0.05 K/mm3 (0.00-0.10); Basophils Percent Auto 0.7 % (0.0-1.0); Eosinophils Absolute Auto 0.09 K/mm3 (0.02-0.50); Eosinophils Percent Auto 1.3 % (1.0-6.0); Hemoglobin 12.1 g/dL (12.0-15.0); Immature Granulocyte Absolute 0.03 K/mm3 (0.00-0.00); Immature Granulocyte Percent A 0.4 % (0.0-0.0); Lymphocytes Absolute Auto 1.79 K/mm3 (1.10-4.50); Lymphocytes Percent Auto 26.3 % (18.0-42.0); Mean Corpuscular HGB Conc 33.6 g/dL (32.0-36.0); Mean Corpuscular Hemoglobin 28.8 pg (27.0-31.0); Mean Corpuscular Volume 85.7 fL (78.0-102.0); Mean Platelet Volume 10.3 fl (9.2-11.8); Monocytes Absolute Auto 0.69 K/mm3 (0.10-0.90); Monocytes Percent Auto 10.1 % (2.0-11.0); Neutrophils Absolute Auto 4.2 K/mm3 (1.7-7.2); Neutrophils Percent Auto 61.2 % (50.0-70.0); Platelet Count Result 244 K/mm3 (150-420); Red Cell Distribution Width 15.4 % (11.6-14.4); White Blood Count 6.8 K/mm3 (4.8-10.8)
[2020-12-11 11:35] LABS: D Dimer 0.26 mg/L (0.19-0.50); INR 0.9; Partial Thromboplastin Time 22.9 SEC (23.90-30.70); Prothrombin Time 10.1 Seconds (9.50-12.10)
[2020-12-11 11:38] LABS: Alanine Aminotransferase 22 U/L (14-59); Albumin Level 3.8 g/dL (3.4-5.0); Alkaline Phosphatase 76 U/L (46-116); Anion Gap 12 mmol/L (8-16); Aspartate Amino Transferase 16 U/L (15-37); Bilirubin,Total 0.2 mg/dL (0.00-1.00); Blood Urea Nitrogen 8 mg/dL (7-18); Calcium 8.7 mg/dL (8.5-10.1); Carbon Dioxide 24 mmol/L (21-32); Chloride 105 mmol/L (98-108); Estimated Glomerular Filt Rate > 60; Glucose 98 mg/dL (70-99); Osmolality Calculated 290 mOsm/kg (285-295); Potassium 3.4 mmol/L (3.5-5.1); Sodium 141 mmol/L (136-145); Total Protein 7.9 g/dL (6.4-8.2); Troponin I 5.3 ng/L (0.00-60.4)
[2020-12-11 13:22] VITALS: BP 104/52; PULSE 92; RESP 15; O2SAT 99
== END 2020-12-11 13:30 | disposition home or self-care (01) ==
PROVIDERS: Emergency Provider Emergency Medicine; PCP Family Medicine
DX: R06.02 Shortness of breath (principal)
CPT/HCPCS: 36415; 71046; 80053; 84484; 85025; 85380; 85610; 85730; 93005; 99283; 99284

== ENCOUNTER 2021-06-19 10:57 | Emergency (ER) | payer OTHER, SELFPAY ==
[2021-06-19 11:10] VITALS: BP 122/81; PULSE 88; RESP 16; TEMP 36.4; O2SAT 100
--- NOTE | 2021-06-19 11:27 | ECG_ITS ---
Measurements Intervals [place] Rate: 87 P: 62 [place]: 156 QRS: 76 QRSD: 90 T: 42 QT: 359 QTc: 434 Interpretive Statements SINUS RHYTHM MINIMAL Q WVES- INFERIOR LEADS BASELINE WANDER- V4 BORDERLINE ECG Electronically Signed On 06-19-2021 11:41:13 CDT by Navin Leonard D.O.
--- NOTE | 2021-06-19 11:27 | ED.ARRPALP ---
HPI - Arrhythmia/Palpitations General Chief Complaint: Arrhythmia/Palpitations Stated Complaint: chest pain/palpations Time Seen by Provider: 06/19/21 11:27 History of Present Illness HPI narrative: 31-year-old female patient is here with chief complaints of palpitations that started yesterday evening. Patient apparently felt her heart racing last night but was able to sleep through the night. This morning she experienced the same symptoms. There is no associated chest pain or shortness of breath but there is some tightness that she complains of feeling in her chest. This tightness is localized and not radiating into the neck arms or jaw. The the patient has history of anxiety underlying and is currently taking lorazepam 1 mg 3 times a day. She is also on control pills. She does not smoke and denies using any recreational medications. Patient denies breaking out in a sweat. patient denies any unexplained weight loss. COVID screen is negative Related Data Home Medications Medication Instructions Recorded Confirmed lorazepam 1 mg PO TID PRN 06/19/21 06/19/21 Allergies Allergy/AdvReac Type Severity Reaction Status Date / Time sulfamethoxazole Allergy Mild Rash Verified 03/16/20 07:26 trimethoprim Allergy Mild Rash Verified 03/16/20 07:26 Review of Systems Review of Systems: All systems reviewed & are unremarkable except as noted in HPI and below Constitutional: Constitutional: Reports no additional constitutional complaints Eyes: Eyes: Reports no additional eye complaints ENT: Reports system reviewed and no additional complaints, except as documented Cardiovascular: Cardiovascular: Reports no additional cardiovascular complaints Respiratory: Respiratory: Reports no additional respiratory complaints Gastrointestinal: Gastrointestinal: Reports no additional gastrointestinal complaints Genitourinary: Genitourinary: Reports no additional female genitourinary complaints Musculoskeletal: Musculoskeletal: Reports no additional musculoskeletal complaints Integumentary/Breasts: Skin/Breast: Reports system reviewed and no additional complaints, except as docu Neurologic: Reports system reviewed and no additional complaints, except as documented Psychiatric: Psychiatric: Reports no additional psychiatric complaints Endocrine: Endocrine: Reports no additional endocrine complaints Hematologic/Lymphatic: Hematologic/Lymphatic: Reports no additional hematologic/lymphatic complaints Allergic/Immunologic: Allergic/Immunologic: Reports no additional allergic/immunologic complaints [facility] Past Medical History Medical History (Updated 06/19/21 @ 12:50 by Paula Sadler MD) Abnormal uterine bleeding (AUB) Anxiety Products of conception, retention Social History Social History Smoking status: Former smoker Substance use: never Gender identity (if verbalized by the patient): Female Spiritual care concerns: No Exam Narrative: Patient is alert and appears in no acute distress. Vital signs are stable. Patient shows normal sinus rhythm on the monitor. HEENT is normal. Neck is supple and nontender. Chest wall is nontender. Heart tones are regular and no murmurs are appreciated. Breath sounds are audible bilaterally without any adventitious sounds. Abdomen is soft and nontender. Extremities are atraumatic. Skin is warm and dry and color is normal. Neurologic examination is grossly normal. Patient exhibits normal mood and thought process. She is slightly anxious Course Course Emergency Course: Patient has been resting and feels slightly better. EKG shows normal sinus rhythm. Diagnostic workup is unremarkable except for a magnesium level of 1.7. Patient does take magnesium supplements and has been advised to double them up. A TSH is normal and T4 is pending. The patient states that 3 months back she had normal thyroid functio
[2021-06-19 11:48] LABS: Basophils Absolute Auto 0.03 K/mm3 (0.00-0.10); Basophils Percent Auto 0.4 % (0.0-1.0); Eosinophils Absolute Auto 0.14 K/mm3 (0.02-0.50); Eosinophils Percent Auto 1.9 % (1.0-6.0); Hematocrit 38.2 % (35.0-49.0); Hemoglobin 13.2 g/dL (12.0-15.0); Immature Granulocyte Absolute 0.04 K/mm3 (0.00-0.00); Immature Granulocyte Percent A 0.5 % (0.0-0.0); Lymphocytes Percent Auto 25.9 % (18.0-42.0); Mean Corpuscular HGB Conc 34.6 g/dL (32.0-36.0); Mean Corpuscular Hemoglobin 31.4 pg (27.0-31.0); Mean Corpuscular Volume 90.7 fL (78.0-102.0); Mean Platelet Volume 10.2 fl (9.2-11.8); Monocytes Absolute Auto 0.62 K/mm3 (0.10-0.90); Monocytes Percent Auto 8.4 % (2.0-11.0); Neutrophils Absolute Auto 4.6 K/mm3 (1.7-7.2); Neutrophils Percent Auto 62.9 % (50.0-70.0); Platelet Count Result 216 K/mm3 (150-420); Red Blood Count 4.21 M/mm3 (4.20-5.40); Red Cell Distribution Width 12.6 % (11.6-14.4); White Blood Count 7.3 K/mm3 (4.8-10.8)
[2021-06-19 12:23] LABS: Alanine Aminotransferase 26 U/L (14-59); Albumin Level 3.8 g/dL (3.4-5.0); Alkaline Phosphatase 71 U/L (46-116); Anion Gap 12 mmol/L (8-16); Aspartate Amino Transferase 20 U/L (15-37); Bilirubin,Total 0.6 mg/dL (0.00-1.00); Blood Urea Nitrogen 9 mg/dL (7-18); Calcium 8.8 mg/dL (8.5-10.1); Carbon Dioxide 25 mmol/L (21-32); Chloride 104 mmol/L (98-108); Creatine Kinase 58 U/L (26-192); Creatine Kinase MB < 0.50 ng/mL (0.00-5.00); Estimated Glomerular Filt Rate > 60; Glucose 96 mg/dL (70-99); Magnesium 1.7 mg/dL (1.8-2.4); Osmolality Calculated 290 mOsm/kg (285-295); Potassium 3.7 mmol/L (3.5-5.1); Sodium 141 mmol/L (136-145); Total Protein 7.2 g/dL (6.4-8.2); Troponin I < 4.0 ng/L (0.00-60.4)
[2021-06-19 12:24] LABS: Thyroid Stimulating Hormone 1.11 uIU/mL (0.36-3.74)
[2021-06-19 12:51] VITALS: BP 118/69
[2021-06-21 14:15] LABS: T4 Thyroxine 7.2 mcg/dL (5.1-11.9)
== END 2021-06-19 12:55 | disposition home or self-care (01) ==
PROVIDERS: Emergency Provider Emergency Medicine; PCP Family Medicine
DX: R00.2 Palpitations (principal); F41.9 Anxiety disorder, unspecified
CPT/HCPCS: 36415; 80053; 82550; 82553; 83735; 84436; 84443; 84484; 85025; 93005; 99282; 99284

== ENCOUNTER → 2021-11-22 02:37 | Outpatient (CLI) | payer OTHER, SELFPAY ==
[2021-11-23 14:37] LABS: SARS-CoV-2 RNA PCR Negative
== END ==
PROVIDERS: PCP Family Medicine; Visit Provider Obstetrics & Gynecology
DX: Z01.812 Encounter for preprocedural laboratory examination (principal); Z20.822 Contact with and (suspected) exposure to COVID-19
CPT/HCPCS: 36415; 85014; 85018; C9803; U0003; U0005

== ENCOUNTER 2021-11-22 09:36 | Outpatient (CLI) | payer OTHER, SELFPAY ==
[2021-11-22 22:17] LABS: Hematocrit 39.6 % (37.0-47.0); Hemoglobin 13.6 g/dL (12.0-15.0)
== END 2021-11-22 09:37 | disposition home or self-care (01) ==
LOC: ANHSURGERY 09:39
PROVIDERS: PCP Family Medicine; Visit Provider Obstetrics & Gynecology
DX: Z01.818 Encounter for other preprocedural examination (principal); N93.9 Abnormal uterine and vaginal bleeding, unspecified
CPT/HCPCS: 36415; 85014; 85018

== ENCOUNTER 2021-11-24 01:12 | Day surgery (SDC) | payer OTHER, SELFPAY ==
[2021-11-21 14:38] VITALS: BMI 23.8
--- NOTE | 2021-11-21 14:46 | PC.NURSE ---
Report to the Outpatient Waiting Room, entrance under the green pavilion located off [facility], at time 11:30 on date 11/24/21. OR Time: 1:30. - You will be asked a series of questions to screen for COVID 19 for your protection. - A mask is required within the hospital. - No visitors are allowed at this time. Preoperative COVID Testing Requirements: COVID TEST 11/22 AT 9:30 No COVID Test needed if: (proof is required; if not received patient will have Rapid Test prior to entry) - Patient has received COVID Vaccine at least 14 days prior to procedure date or - Patient has positive COVID test result within last 90 days of surgery date. COVID Test needed if above criteria is not met If not COVID vaccinated a COVID test must be conducted within 72 hours of surgery and patient is asked to isolate self from time of testing until procedure. You will go to the [id number] for your COVID testing. The [id number] is located at the corner of [address] [facility]. You will only be called if COVID results are positive and your surgeon may reschedule your elective surgery date. Patients may have clear liquids (water, carbonated beverages, clear teas, apple juice) until 3 hours prior to surgery (10:30) with a maximum of 20 ounces. - No food from midnight until time of surgery Take the following medications with a SIP of water the morning of surgery: FLUOXETINE, ALPRAZOLAM (IF NEEDED) Medications to discontinue per physician: N/A Date to take last dose: N/A Please no make-up, nail bermudian, hairspray, perfume, deodorant, or body powder the day of surgery. No jewelry (including any body piercings) or valuables the day of surgery, leave them at home. Please take a shower or bath the night before, or the morning of, surgery with an antibacterial soap. Wear comfortable, loose fitting clothing. - Jewelry must be removed prior to entering the operating room. Rings and piercings that are not removed may be cut off. - The hospital will not accept responsibility for valuables. - Please leave all valuables, including medications, at home the day of surgery. If you are going home after surgery, a licensed commercial trailer truck driver must drive you home. - NO public transportation without another adult. - We recommend that an adult stay with you for 24 hours following discharge. - We also recommend that you do not drive, make important decision, drink alcoholic beverages, or take any drugs that were not prescribed by your health care provider for at least 24 hours after your discharge time. Follow any additional instructions given to you from your surgeon. Telephone instructions given to TORSTEN FLYNN and asked if any additional questions and then verbalized understanding. Patient advised to call surgeon office or pre surgery nurse liaison [phone] if any additional questions.
--- NOTE | 2021-11-22 06:22 | PM.IMHP ---
H&P: HPI History of Present Illness Date/Time: 11/22/21 06:22 31-year-old 2 para 2 admitted for hysteroscopy/ dilatation curettage secondary to excessive heavy bleeding. Attempts with hormonal manipulation been on remarkable. On ultrasound questionable prominent thickening of the lower cervical canal. She is admitted for hysteroscopy dilatation curettage. Risks and benefits reviewed in full. She received the ACOG handout entitled hysteroscopy as well as dilatation and curettage respectively. Chief Complaint: excessive heavy bleeding Review of Systems Review of Systems: All systems reviewed & are unremarkable except as noted in HPI and below PMFSH Past Medical History Medical History Abnormal uterine bleeding (AUB) Anxiety Products of conception, retention Social History Social History Smoking packs per day: 0.5 Smoking cigarettes per day: 10.0 Years smoked: 1 Smoking pack-years: 0.50 Smoking status: Former smoker Tobacco type: cigarettes Smoking end date: 11/18/01 Alcohol intake: current Alcohol use details: A COUPLE/MONTH Substance use: never Substance use type: does not use Additional living arrangements comments: CHILDREN Gender identity (if verbalized by the patient): Female Spiritual care concerns: No Meds Home Medications and Allergies Home Medications Medication Instructions Recorded Confirmed Type alprazolam 1 mg PO BID PRN 11/21/21 11/21/21 History fluoxetine 20 mg PO DAILY 11/21/21 11/21/21 History Allergies Allergy/AdvReac Type Severity Reaction Status Date / Time sulfamethoxazole Allergy Mild Rash Verified 11/21/21 14:36 trimethoprim Allergy Mild Rash Verified 11/21/21 14:36 Exam Const: General: no acute distress Eyes: General: appearance normal, both eyes and all related structures Neck: Neck: supple and no JVD Thyroid: thyroid normal Resp: Effort & Inspection: normal respiratory effort Auscultation: clear to auscultation bilaterally Cardio: Rate: regular rate Rhythm: regular rhythm GI: Inspection: non-distended GI Palp: Yes Soft to palpation, No Tenderness to palpation present (GI) and No Guarding due to palpation present (GI) Auscultation: normal bowel sounds : External Female Exam: normal external appearance Speculum Exam - Vagina: normal appearance of the vagina Speculum Exam - Cervix: normal appearance of the cervix Bimanual exam- vagina & uterus: enlarged Bimanual Exam- Adnexa, other: normal adnexae Skin: General skin exam: no rashes or lesions noted Extrem: General: normal to inspection and no edema Psych: Mental Status: mental status grossly normal Affect: normal affect Assessment and Plan Additional Plan Impression: Excessive bleeding refractory medical therapy Plan: Hysteroscopy/ dilatation curettage
--- NOTE | 2021-11-24 07:11 | WPDHPUPDATE1 ---
History and Physical Update Update Date/Time: 11/24/21 07:11 History and Physical has been reviewed, including an updated exam of the patient. There are NO changes in the patient's condition. Risks, benefits, and alternatives have been discussed and questions answered. Patient agrees to proceed with procedure.
[2021-11-24] MEDS: ACETAMINOPHEN 500 MG TABLET 1000 MG PO (11:39)
[2021-11-24] MEDS: LACTATED RINGERS 1,000 ML 30 ML IV CONT ×2 (12:00→13:50)
[2021-11-24 12:09] VITALS: BP 103/65; PULSE 94; RESP 18; TEMP 37.2; O2SAT 100
--- NOTE | 2021-11-24 12:55 | P.PNAN_ITS ---
Anes - Initial Pre Proc Eval Procedure: Operation Date: 11/24/21 13:30 Proposed Procedures p Hysteroscopy, Dilation and Curettage - Hakan Gresham MD Date/Time: 11/24/21 12:55 Surgeon: Hakan Gresham MD Pre Op Diagnosis: Excessive Bleeding Patient Data Age: 31 Gender: F Height: 1.57 m Weight: 60.9 kg Last Vital Signs Temp 37.2 C 11/24/21 12:09 Pulse 94 11/24/21 12:09 Resp 18 11/24/21 12:09 BP 103/65 11/24/21 12:09 Pulse Ox 100 11/24/21 12:09 Allergies Allergy/AdvReac Type Severity Reaction Status Date / Time sulfamethoxazole Allergy Mild Rash Verified 11/24/21 12:06 trimethoprim Allergy Mild Rash Verified 11/24/21 12:06 Home Medications Medication Instructions Recorded Confirmed Type alprazolam 1 mg PO BID PRN 11/21/21 11/24/21 History fluoxetine 20 mg PO DAILY 11/21/21 11/24/21 History hydrocodone-acetaminophen 1 tablet PO Q4H PRN #20 tablet 11/24/21 Rx Patient hx anesthesia problems: none Family hx anesthesia problems: none Results Review: All pre-operative results and documents have been reviewed as part of the pre-operative evaluation. [facility] Past Medical History Medical History Abnormal uterine bleeding (AUB) Anxiety Products of conception, retention Social History Social History Smoking packs per day: 0.5 Smoking cigarettes per day: 10.0 Years smoked: 1 Smoking pack-years: 0.50 Smoking status: Former smoker Tobacco type: cigarettes Smoking end date: 11/18/01 Alcohol intake: current Alcohol use details: A COUPLE/MONTH Substance use: never Substance use type: does not use Living arrangements: with family Additional living arrangements comments: CHILDREN Gender identity (if verbalized by the patient): Female Spiritual care concerns: No Anes - Eval Final PreProcedure Day of Procedure 11/24/21 12:55 Patient weight: normal Heart: regular rate and rhythm Lungs: clear to auscultation Airway: Mallampati scale class 1 Neurological: alert and oriented Last oral intake: >/= 8 hours ASA classification: II Emergent: no Anesthetic plan: proceed Anesthesia type and monitoring: general GIVS and standard monitoring Results Review: All pre-operative results and documents have been reviewed as part of the pre-operative evaluation. Informed Consent: The patient's anesthetic plan and its attendant risks and benefits were discussed with the patient/family/POA. Questions were solicited and answers provided to the satisfaction of the patient/family/POA.
--- NOTE | 2021-11-24 13:18 | SUR.PREOP ---
1200; PT STATES SHE TOOK HER ALPRAZOLAM THIS MORNING AND IS HAVING SOME DIZZINESS. VSS, SEE GRAPHICS. NOTIFIED DR CARDOSO OF PT'S VS AND DIZZINESS. DR CARDOSO OPENED IVF FOR PT
--- NOTE | 2021-11-24 13:43 | P.OP_ITS ---
Procedure Note - Detailed Date of Procedure 11/24/21 Pre-op Diagnosis Excessive Bleeding Post-op Diagnosis same Procedure Performed Hysteroscopy/dilatation and curettage Surgeon Hakan Gresham MD Anesthesia MAC and local Indications This is a 31-year-old female with irregular bleeding refractory to medical t herapy Findings Uterus sounded to8.5cm. Thick irregular endometrial tissue was seen but no evidence of definitive polyp or other pathology. Each fallopian tube os could be seen and was deemed as normal Description of Procedure The patient was prepped draped in the normal sterile fashion placed in dorsal lithotomy position. Under excellent IV sedation weighted speculum was placed in posterior fornix vagina. Anterior lip of the cervix grasped with single-tooth tenaculum and 2.5cc of 1% xylocaine anesthesia placed respectively at 2, 4, 8, 10:00 a.m.. The uterus sounded to8.5cm. Serial dilatation with fragmented dilators performed followed by passes the 5mm visualizing hysteroscope. Normal saline was used as visualizing medium. Thick irregular endometrial tissue was seen but no definitive evidence of abnormality seen. Each fallopian tube os could be seen and appeared within normal limits. The uterus was then scraped over the entire 360? until a good grating sound was heard. When no further tissue could be removed the instruments removed. All sponge, needle, instrument counts were correct. There were no immediate complications Estimated Blood Loss 5 Drains No Packing No Pathology yes Complications No immediate complications Condition stable Disposition PACU
[2021-11-24 13:50] VITALS: BP 92/39; PULSE 86; RESP 14; O2SAT 100
[2021-11-24 14:20] VITALS: BP 97/52; PULSE 73; RESP 16
[2021-11-24 14:50] VITALS: BP 116/65; PULSE 100; RESP 16; O2SAT 100
[2021-11-24 15:15] VITALS: BP 117/51; PULSE 89; RESP 16
== END 2021-11-24 15:33 | disposition home or self-care (01) ==
PROVIDERS: PCP Family Medicine; Visit Provider Obstetrics & Gynecology
PROC: 0U5B8ZZ Destruction of Endometrium, Via Natural or Artificial Opening Endoscopic (ICD-10-PCS; CPT 58563; principal; 2021-11-24 13:30)
DX: N93.9 Abnormal uterine and vaginal bleeding, unspecified (principal); F41.9 Anxiety disorder, unspecified; Z87.891 Personal history of nicotine dependence
CPT/HCPCS: 58558; 88305; A9270; J1100; J2250; J2405; J2704; J3010; J7030; J7120

== ENCOUNTER 2021-12-28 15:05 | Emergency (ER) | payer OTHER, SELFPAY ==
--- NOTE | ~2021-12-28 | CT_ITS ---
EXAMINATION: CT brain wo con DATE: 12/28/2021 16:01 INDICATION: Head injury. TECHNIQUE: Computed tomography (CT) of the head was performed without intravenous contrast. The mA wa s adjusted according to patient size. Iterative reconstruction technique was employed. The dose-lengt h product was 605.33 mGy-cm. COMPARISON: None FINDINGS: There is no intracranial hemorrhage, acute infarction, or abnormal intracranial mass lesion . The ventricles are normal in size. The paranasal sinuses are clear. The mastoid air cells are nithin l. IMPRESSION: 1. Normal brain. Reviewed, dictated and finalized at location E. RADE TESTER IMPRESSION: 1. Normal brain.
--- NOTE | ~2021-12-28 | CT_ITS ---
EXAMINATION: CT cervical spine wo con EXAM DATE: 12/28/2021 16:02 INDICATION: fell on ice on 12/23.pain @ base of skull/down LT side of neck . TECHNIQUE: Spiral CT of the cervical spine was performed without contrast. Axial images were reviewe d. Coronal and sagittal reformatted images cervical spine were also reviewed. The dose-length produc t (DLP) for this examination was 166.85 mGy-cm. The exposure was tailored according to patient size (auto mA exposure control), and iterative reconstruction (ASIR) was used as additional dose reduction technique. There is no prior study for comparison. FINDINGS: There is mild reversal of the normal cervical lordosis which may be positional or spasm. Th ere is no evidence of acute cervical fracture. The odontoid process is intact. Pre-dens space is no rmal. Prevertebral soft tissue is normal. There are no soft tissue abnormalities identified. There is no disc space widening or traumatic vertebral body subluxation suspected. Vertebral body and dis c heights are well-maintained. A detailed level by level evaluation of spondylosis can be added as addendum if requested. IMPRESSION: 1. No acute cervical fracture. 2. Mild reversal of normal cervical lordosis. Reviewed, dictated and finalized at location B. LING MACHINE OPERATOR
[2021-12-28 15:34] VITALS: BP 126/57; PULSE 85; RESP 16; TEMP 36.2; O2SAT 98
--- NOTE | 2021-12-28 16:17 | ED.HEATRA ---
HPI - Head Injury General Chief complaint: Head Injury Stated complaint: trouble moving head,fever-saturday head injury Time Seen by Provider: 12/28/21 15:17 Source: patient Mode of arrival: ambulatory History of Present Illness HPI Narrative: patient presents with some headache and some neck pain that occurred approximately 1 week ago when she fell on a patch of ice hitting the back of her head with no loss of consciousness was seen in emergency department had a CT scan performed which showed no acute intracranial process no hemorrhage no bleeding. The patient saw her primary care physician today because she continued to have headache and some neck pain radiation into her left neck area, the patient admits that she does not like to take medication and did not take any of her pain medication. After seeing her primary care physician he was concerned and advised her to come to the emergency department for further evaluation. Complaint: head injury and head pain Onset (ago): week(s) Mechanism of Injury: fall Place: outdoors Loss of Consciousness: no Location of injury: occipital Severity: moderate Severity scale (1-10): 6 Quality: dull Radiation: neck Other Injuries: none Associated symptoms: neck pain Related Data Home Medications Medication Instructions Recorded Confirmed alprazolam 1 mg PO BID PRN 11/21/21 12/28/21 fluoxetine 20 mg PO DAILY 11/21/21 12/28/21 Allergies Allergy/AdvReac Type Severity Reaction Status Date / Time sulfamethoxazole Allergy Mild Rash Verified 12/28/21 15:41 trimethoprim Allergy Mild Rash Verified 12/28/21 15:41 Review of Systems Review of Systems: All systems reviewed & are unremarkable except as noted in HPI and below PMFSH Past Medical History Medical History (Updated 12/28/21 @ 16:21 by Aniceto Chiang MD) Abnormal uterine bleeding (AUB) Anxiety Products of conception, retention Social History Social History Smoking packs per day: 0.5 Smoking cigarettes per day: 10.0 Years smoked: 1 Smoking pack-years: 0.50 Smoking status: Former smoker Tobacco type: cigarettes Smoking end date: 11/18/01 Alcohol intake: current Alcohol use details: A COUPLE/MONTH Substance use: never Substance use type: does not use Additional living arrangements comments: CHILDREN Gender identity (if verbalized by the patient): Female Spiritual care concerns: No Exam Const: General: no acute distress and alert Orientation/consciousness: patient oriented x3 HENMT: Head: normal to inspection Eyes: Conjunctivae: conjunctivae normal Pupils: Equal, round and reactive pupils present Neck: Neck: normal visual inspection Chest: Chest palpation & inspection: normal inspection of the chest Resp: Effort & Inspection: normal respiratory effort Cardio: Rate: regular rate Rhythm: regular rhythm GI: GI Palp: Yes Soft to palpation : General: Yes no CVA tenderness Urinary Catheter: Urinary Catheter: patent and draining Back/Spine/Pelvis: Back: no CVA tenderness Skin: General skin exam: normal color Rashes: no rashes Neuro: General: patient oriented x3, moves all extremities, no meningeal signs and no focal motor deficits Cranial nerves: Yes CN's II-XII intact bilaterally Extrem: General: normal to inspection and no pedal edema Psych: Mental Status: mental status grossly normal Course Course Emergency Course: Patient stated that her pain was some moderate moderately controlled at this point as she took some medication prior to arrival to the ER, CT scan of the head and neck were reviewed with patient. Vital Signs Vital signs: Vital Signs Temperature 36.2 C L 12/28/21 15:34 Pulse Rate 85 12/28/21 15:34 Respiratory Rate 16 12/28/21 15:34 Blood Pressure 126/57 L 12/28/21 15:34 Pulse Oximetry 98 12/28/21 15:34 Temperature 36.2 C L 12/28/21 15:34 Pulse Rate 85 12/28/21 15:34
[2021-12-28 16:40] VITALS: BP 115/67; PULSE 73; RESP 20; TEMP 36.7; O2SAT 97
== END 2021-12-28 16:42 | disposition home or self-care (01) ==
PROVIDERS: Emergency Provider Emergency Medicine; PCP Family Medicine
DX: M54.2 Cervicalgia (principal); S06.0X0S Concussion without loss of consciousness, sequela; W19.XXXA Unspecified fall, initial encounter
CPT/HCPCS: 70450; 72125; 99284

== ENCOUNTER 2023-05-16 21:19 | Emergency (ER) | payer OTHER, SELFPAY ==
[2023-05-16 21:25] VITALS: BP 125/79; PULSE 106; RESP 18; TEMP 36.4; O2SAT 97
--- NOTE | 2023-05-16 21:45 | ED.ALCOHOL ---
HPI - Alcohol General Chief Complaint: Alcohol Stated Complaint: Ambulance Time Seen by Provider: 05/16/23 21:29 Source: patient and EMS Mode of arrival: EMS Limitations: no limitations History of Present Illness HPI narrative: this is a 33-year-old female that has chronic alcohol abuse and has been drinking this evening with a friend and she does not feel right and called EMS bring her in for further evaluation the patient feels anxious with no nausea or vomiting no abdominal pain no chest pain no fever chills no diarrhea constipation. complaint: alcohol intoxication Chronic alcohol use: Yes Previous visits for alcohol intoxication: No Recent trauma: No Associated symptoms: denies other symptoms Related Data Home Medications Medication Instructions Recorded Confirmed alprazolam 1 mg tablet 1 mg PO BID PRN Anxiety 11/21/21 12/28/21 fluoxetine 20 mg tablet 20 mg PO DAILY 11/21/21 12/28/21 Allergies Allergy/AdvReac Type Severity Reaction Status Date / Time sulfamethoxazole Allergy Mild Rash Verified 05/16/23 21:32 trimethoprim Allergy Mild Rash Verified 05/16/23 21:32 Review of Systems Review of Systems: All systems reviewed & are unremarkable except as noted in HPI and below PMFSH Past Medical History Medical History (Updated 05/16/23 @ 21:51 by Aniceto Chiang MD) Abnormal uterine bleeding (AUB) Anxiety Products of conception, retention Social History Social History Smoking packs per day: 0.5 Smoking cigarettes per day: 10.0 Years smoked: 1 Smoking pack-years: 0.50 Smoking status: Former smoker Tobacco type: cigarettes Smoking end date: 11/18/01 Alcohol intake: current Alcohol use details: A COUPLE/MONTH Substance use: never Substance use type: does not use Living arrangements: with family Additional living arrangements comments: CHILDREN Gender identity (if verbalized by the patient): Female Spiritual care concerns: No Exam Const: General: healthy appearing Nutritional Appearance: well nourished Orientation/consciousness: patient oriented x3 Limitations: no limitations HENMT: Head: normal to inspection Eyes: Conjunctivae: conjunctivae normal Neck: Neck: normal visual inspection Chest: Chest palpation & inspection: normal inspection of the chest Resp: Effort & Inspection: normal respiratory effort Auscultation: clear to auscultation bilaterally Cardio: Rate: regular rate Rhythm: regular rhythm GI: GI Palp: Yes Soft to palpation Auscultation: normal bowel sounds Skin: General skin exam: normal color Neuro: General: patient oriented x3 Cranial nerves: Yes Nystagmus not present Speech: normal speech Extrem: General: normal to inspection Psych: Mental Status: mental status grossly normal Affect: normal affect Attitude: cooperative Course Course Emergency Course: Patient received IV fluids, and blood work that was performed and reviewed with patient and needs follow-up appointment to establish care and get help with her alcohol abuse. Vital Signs Vital signs: Vital Signs Temperature 36.4 C L 05/16/23 21:25 Pulse Rate 106 H 05/16/23 21:25 Respiratory Rate 18 05/16/23 21:25 Blood Pressure 125/79 05/16/23 21:25 Pulse Oximetry 97 05/16/23 21:25 Oxygen Delivery Room Air 05/16/23 21:25 Temperature 36.4 C L 05/16/23 21:25 Pulse Rate 106 H 05/16/23 21:25 Respiratory Rate 18 05/16/23 21:25 Blood Pressure 125/79 05/16/23 21:25 Pulse Oximetry 97 05/16/23 21:25 Oxygen Delivery Room Air 05/16/23 21:25 Critical Care Time Critical Care Time Critical Care Time: No Discharge Plan Discharge Clinical Impression: Alcoholic intoxication Qualifiers: Complication of substance-induced condition: uncomplicated Qualified Code(s): F10.920 - Alcohol use, unspecified with intoxication, uncomplicated Patient Disposition: Home, Self-Care Condition:
[2023-05-16 21:56] LABS: Basophils Absolute Auto 0.09 K/mm3 (0.00-0.10); Basophils Percent Auto 1.6 % (0.0-1.0); Eosinophils Absolute Auto 0.06 K/mm3 (0.02-0.50); Eosinophils Percent Auto 1.1 % (1.0-6.0); Hematocrit 37.4 % (35.0-49.0); Immature Granulocyte Absolute 0.03 K/mm3 (0.00-0.00); Immature Granulocyte Percent A 0.5 % (0.0-0.0); Lymphocytes Absolute Auto 2.53 K/mm3 (1.10-4.50); Lymphocytes Percent Auto 46.3 % (18.0-42.0); Mean Corpuscular HGB Conc 34.8 g/dL (32.0-36.0); Mean Corpuscular Hemoglobin 34.9 pg (27.0-31.0); Mean Corpuscular Volume 100.3 fL (78.0-102.0); Mean Platelet Volume 9.6 fl (9.2-11.8); Monocytes Absolute Auto 0.52 K/mm3 (0.10-0.90); Monocytes Percent Auto 9.5 % (2.0-11.0); Neutrophils Absolute Auto 2.2 K/mm3 (1.7-7.2); Platelet Count Result 311 K/mm3 (150-420); Red Blood Count 3.73 M/mm3 (4.20-5.40); Red Cell Distribution Width 13.5 % (11.6-14.4); White Blood Count 5.5 K/mm3 (4.8-10.8)
[2023-05-16 22:01] VITALS: BP 102/63; PULSE 88; RESP 16; O2SAT 96
[2023-05-16 22:04] LABS: Amphetamine Screen Urine Negative (Negative); Barbiturate Screen Urine Negative (Negative); Benzodiazepines Screen Urine Negative (Negative); Cannabinoid Screen Urine Negative (Negative); Cocaine Screen Urine Negative (Negative); Methadone Screen Urine Negative (Negative); Opiate Screen Urine Negative (Negative); Phencyclidine Screen Urine Negative (Negative)
[2023-05-16 22:14] VITALS: BP 102/63; PULSE 96; RESP 18; O2SAT 97
[2023-05-16 22:14] LABS: Alanine Aminotransferase 159 U/L (14-59); Albumin Level 3.4 g/dL (3.4-5.0); Alkaline Phosphatase 119 U/L (46-116); Anion Gap 12 mmol/L (8-16); Aspartate Amino Transferase 285 U/L (15-37); Bilirubin,Total 0.4 mg/dL (0.00-1.00); Blood Urea Nitrogen 4 mg/dL (7-18); Calcium 8.1 mg/dL (8.5-10.1); Carbon Dioxide 26 mmol/L (21-32); Chloride 107 mmol/L (98-108); Creatine Kinase 72 U/L (26-192); Estimated CRCL calculation 108 ml/min; Estimated Glomerular Filt Rate > 60; Glucose 89 mg/dL (70-99); Osmolality Calculated 295 mOsm/kg (285-295); Potassium 3.7 mmol/L (3.5-5.1); Sodium 145 mmol/L (136-145); Total Protein 7.4 g/dL (6.4-8.2)
[2023-05-16 22:15] LABS: Ethanol > 300 mg/dL (0-6)
[2023-05-16] MEDS: SODIUM CHLORIDE 0.9% IV 1,000 ML 999 ML IV CONT (22:23)
--- NOTE | 2023-05-16 22:59 | PC.NURSE ---
pt self ambulated from room 6 to ER bathroom with a steady gait.
--- NOTE | 2023-05-16 23:35 | PC.NURSE ---
Pt states that she has contacted a friend who lives in [place] and is going to go and stay with them tonight. Pt states that she wants to walk to their house. RN urged pt to find s sober ride, and asked if the patient had any other options for a means of getting home. Pt adamantly denies having anyone else to call and states that she is going to walk to her friend's hosue. Dr. Chiang aware and states pt is able to leave by herself.
[2023-05-16 23:44] VITALS: PULSE 79; RESP 18; O2SAT 98
== END 2023-05-16 23:44 | disposition home or self-care (01) ==
PROVIDERS: Emergency Provider Emergency Medicine; PCP Physician Assistant
DX: F10.920 Alcohol use, unspecified with intoxication, uncomplicated (principal); Z87.891 Personal history of nicotine dependence
CPT/HCPCS: 36415; 80053; 80307; 82550; 85025; 96360; 99283; J7030

== ENCOUNTER 2023-09-24 01:59 | Emergency (ER) | payer OTHER, SELFPAY ==
[2023-09-24 02:01] VITALS: BP 129/84; PULSE 116; RESP 18; TEMP 36.7; O2SAT 98
--- NOTE | 2023-09-24 02:12 | ED.GENADULT ---
HPI - General Adult General Chief complaint: Alcohol Stated complaint: EtOh withdrawal History of Present Illness HPI narrative: 33yo woman with alcohol abuse and dependence, drinks a fifth of liquor daily, presents in alcohol withdrawal. Last drink yesterday afternoon. Tremulous. Has had this before. Wants to quit. Has been trying outpatient rehab in [place]. Has PO lorazepam at home but can't keep it down due to nausea. Related Data Home Medications Medication Instructions Recorded Confirmed alprazolam 1 mg tablet (Xanax) 1 mg PO BID PRN Anxiety 11/21/21 09/24/23 fluoxetine 20 mg tablet 20 mg PO DAILY 11/21/21 09/24/23 ondansetron HCl 4 mg tablet 4 mg PRN PRN nausea/vomiting 09/24/23 09/24/23 Allergies Allergy/AdvReac Type Severity Reaction Status Date / Time sulfamethoxazole Allergy Mild Rash Verified 09/24/23 02:37 trimethoprim Allergy Mild Rash Verified 09/24/23 02:37 Review of Systems Constitutional: Constitutional: Denies fever(s) Cardiovascular: Cardiovascular: Denies chest pain Respiratory: Respiratory: Denies dyspnea Gastrointestinal: Gastrointestinal: Denies abdominal pain PMFSH Past Medical History Medical History (Updated 09/24/23 @ 07:11 by Clyde Salinas MD) Abnormal uterine bleeding (AUB) Anxiety Products of conception, retention Social History Social History Smoking packs per day: 0.5 Smoking cigarettes per day: 10.0 Years smoked: 1 Smoking pack-years: 0.50 Smoking status: Former smoker Tobacco type: cigarettes Smoking end date: 11/18/01 Alcohol intake: current Alcohol use details: A COUPLE/MONTH Substance use: never Substance use type: does not use Living arrangements: with family Additional living arrangements comments: CHILDREN Gender identity (if verbalized by the patient): Female Spiritual care concerns: No Exam Const: General: diaphoretic Nutritional Appearance: well nourished Orientation/consciousness: patient oriented x3 Eyes: Conjunctivae: conjunctivae normal Resp: Effort & Inspection: normal respiratory effort Skin: General skin exam: normal color, no jaundice and no pallor Extrem: General: no clubbing, cyanosis or edema Course Course Emergency Course: 2 mg lorazepam was sufficient to hold patient's symptoms and vital signs for 4 hours. Will discharge to home on Librium taper Vital Signs Vital signs: Vital Signs Temperature 36.7 C 09/24/23 02:01 Pulse Rate 116 H 09/24/23 02:01 Respiratory Rate 18 09/24/23 02:01 Blood Pressure 129/84 09/24/23 02:01 Pulse Oximetry 98 09/24/23 02:01 Oxygen Delivery Room Air 09/24/23 02:01 Temperature 36.7 C 09/24/23 02:01 Pulse Rate 116 H 09/24/23 02:01 Respiratory Rate 18 09/24/23 02:01 Blood Pressure 129/84 09/24/23 02:01 Pulse Oximetry 98 09/24/23 02:01 Oxygen Delivery Room Air 09/24/23 02:01 Medical Decision Making MDM Narrative Medical decision making narrative: tremor, nausea DDx acute alcohol withdrawal, gastroenteritis, anxiety Vital Signs Vital Signs: Vital Signs Temperature 36.7 C 09/24/23 02:01 Pulse Rate 116 H 09/24/23 02:01 Respiratory Rate 18 09/24/23 02:01 Blood Pressure 129/84 09/24/23 02:01 Pulse Oximetry 98 09/24/23 02:01 Oxygen Delivery Room Air 09/24/23 02:01 Temperature 36.7 C 09/24/23 02:01 Pulse Rate 116 H 09/24/23 02:01 Respiratory Rate 18 09/24/23 02:01 Blood Pressure 129/84 09/24/23 02:01 Pulse Oximetry 98 09/24/23 02:01 Oxygen Delivery Room Air 09/24/23 02:01 Discharge Plan Discharge Clinical Impression: Alcohol withdrawal syndrome without complication Patient Disposition: Home, Self-Care Condition: Improved Additional Instructions: TAKE THE PRESCRIBED MEDICATION SCHEDULED TO PREVENT FURTHER ALCOHOL WITHDRAWAL. Prescriptions: New chlordiazepoxide HCl 25 mg capsule
[2023-09-24] MEDS: ONDANSETRON INJ 4 MG/2 ML VIAL 8 MG IV PUSH (02:19)
[2023-09-24] MEDS: SODIUM CHLORIDE 0.9% IV 1,000 ML 999 ML IV CONT (02:19)
[2023-09-24] MEDS: LORazepam INJ (*CRX) 2 MG/ML VIAL IV PUSH (02:20)
[2023-09-24 02:30] LABS: Basophils Absolute Auto 0.06 K/mm3 (0.00-0.10); Basophils Percent Auto 0.7 % (0.0-1.0); Eosinophils Absolute Auto 0.08 K/mm3 (0.02-0.50); Eosinophils Percent Auto 0.9 % (1.0-6.0); Hematocrit 36.8 % (35.0-49.0); Immature Granulocyte Absolute 0.04 K/mm3 (0.00-0.00); Immature Granulocyte Percent A 0.5 % (0.0-0.0); Lymphocytes Absolute Auto 2.22 K/mm3 (1.10-4.50); Lymphocytes Percent Auto 25.8 % (18.0-42.0); Mean Corpuscular HGB Conc 35.3 g/dL (32.0-36.0); Mean Corpuscular Hemoglobin 33.3 pg (27.0-31.0); Mean Corpuscular Volume 94.4 fL (78.0-102.0); Mean Platelet Volume 9.4 fl (9.2-11.8); Monocytes Absolute Auto 0.58 K/mm3 (0.10-0.90); Monocytes Percent Auto 6.7 % (2.0-11.0); Neutrophils Absolute Auto 5.6 K/mm3 (1.7-7.2); Neutrophils Percent Auto 65.4 % (50.0-70.0); Platelet Count Result 243 K/mm3 (150-420); Red Cell Distribution Width 12.8 % (11.6-14.4); White Blood Count 8.6 K/mm3 (4.8-10.8)
[2023-09-24 02:44] LABS: Alanine Aminotransferase 68 U/L (14-59); Albumin Level 3.8 g/dL (3.4-5.0); Alkaline Phosphatase 103 U/L (46-116); Anion Gap 17 mmol/L (8-16); Aspartate Amino Transferase 60 U/L (15-37); Bilirubin,Total 0.6 mg/dL (0.00-1.00); Blood Urea Nitrogen 4 mg/dL (7-18); Calcium 9.2 mg/dL (8.5-10.1); Carbon Dioxide 21 mmol/L (21-32); Chloride 99 mmol/L (98-108); Creatine Kinase 87 U/L (26-192); Estimated CRCL calculation 105 ml/min; Estimated Glomerular Filt Rate > 60; Ethanol 6 mg/dL (0-6); Glucose 92 mg/dL (70-99); Magnesium 1.8 mg/dL (1.8-2.4); Osmolality Calculated 280 mOsm/kg (285-295); Potassium 3.5 mmol/L (3.5-5.1); Sodium 137 mmol/L (136-145); Total Protein 7.8 g/dL (6.4-8.2)
[2023-09-24 02:51] VITALS: PULSE 92; RESP 13; O2SAT 96
[2023-09-24 02:52] LABS: Lactic Acid Reflex 2.1 mmol/L (0.4-2.0)
[2023-09-24 03:17] LABS: Appearance Urine Clear (Clear); Bilirubin Urine Negative (Negative); Blood Urine 1+ (Negative); Color Urine Light Yellow (Yellow); Glucose Urine UA Negative (Negative); Ketones Urine 2+ (Negative); Leukocyte Esterase Ur Negative LEU/UL (Negative); Nitrate Urine Negative (Negative); Protein Urine Trace (Negative); Specific Grav Ur >= 1.030 (1.010-1.020); Urobilinogen Urine 0.2 mg/dL (0.2-1.0)
[2023-09-24 03:19] LABS: Pregnancy On Board Control Positive; Urine Pregnancy Test Negative
--- NOTE | 2023-09-24 03:20 | PC.NURSE ---
patient ambulatory to bathroom for second time. awake and alert without distress. friend at bedside and ivf nearing completion.
[2023-09-24 03:30] LABS: Add Urine Microscopic? YES
[2023-09-24 03:31] LABS: Bacteria Urine 1+ /hpf; Squamous Epithelial Cell Urine Few /hpf (Few); WBC Urine 0-3 /hpf (0-3)
[2023-09-24 03:34] LABS: Amphetamine Screen Urine Negative (Negative); Barbiturate Screen Urine Negative (Negative); Benzodiazepines Screen Urine Positive (Negative); Cannabinoid Screen Urine Negative (Negative); Cocaine Screen Urine Negative (Negative); Methadone Screen Urine Negative (Negative); Opiate Screen Urine Negative (Negative); Phencyclidine Screen Urine Negative (Negative)
[2023-09-24] MEDS: THIAMINE HCL INJ 100 MG, FOLIC ACID 1 MG, MULTIVITAMINS-12 INJ 10 ML, MAGNESIUM SULFATE... 250 MG IV CONT (03:53)
[2023-09-24 04:45] VITALS: BP 115/47; PULSE 99; RESP 16; TEMP 36.8; O2SAT 98
[2023-09-24 05:37] VITALS: BP 128/82; PULSE 99; RESP 12; O2SAT 98
[2023-09-24 05:58] LABS: Reflex Lactic Acid Yes or No Add Lactic
[2023-09-24 06:35] VITALS: PULSE 93; RESP 14; TEMP 36.8; O2SAT 97
[2023-09-24 06:42] LABS: Lactic Acid 1.4 mmol/L (0.4-2.0)
--- NOTE | 2023-09-24 07:00 | PC.NURSE ---
patient report given to NAHEED Bhatti who is continuing patient care at shift change. Dr. Salinas at bedside for patient update.
[2023-09-24] MEDS: LORazepam INJ (*CRX) 2 MG/ML VIAL 1 MG IV PUSH (07:21)
[2023-09-24] MEDS: chlordiazePOXIDE (*CRX) 25 MG CAPSULE PO (07:21)
[2023-09-24 07:24] VITALS: PULSE 96; RESP 20; O2SAT 98
== END 2023-09-24 07:30 | disposition home or self-care (01) ==
PROVIDERS: Emergency Provider Emergency Medicine; PCP Family Medicine
DX: F10.139 Alcohol abuse with withdrawal, unspecified (principal); F41.9 Anxiety disorder, unspecified; Y90.9 Presence of alcohol in blood, level not specified; Z79.899 Other long term (current) drug therapy; Z87.891 Personal history of nicotine dependence
CPT/HCPCS: 36415; 80053; 80307; 81001; 81025; 82550; 83605; 83735; 85025; 96361; 96365; 96366; 96375; 96376; 99284; A9270; J2060; J2405; J3411; J3475; J7030; J7121

== ENCOUNTER 2023-09-25 09:52 | Emergency (ER) | payer OTHER, SELFPAY ==
[2023-09-25] VITALS (16 sets, daily range): BP systolic 123–132; BP diastolic 65–86; PULSE 89–114; RESP 14–28; TEMP 36.2; O2SAT 98–100
--- NOTE | ~2023-09-25 | XR_ITS ---
EXAMINATION: XR chest 1V portable INDICATION: Productive cough TECHNIQUE: Portable AP chest at 1052 hours COMPARISON: 12/11/2020 FINDINGS: The lungs are free of acute opacities. No pleural effusion or pneumothorax. The cardiomedia stinal silhouette is normal. IMPRESSION: 1. No acute cardiopulmonary abnormality. Reviewed, dictated and finalized at location B. ING MACHINE OPERATOR
--- NOTE | 2023-09-25 10:29 | ED.ALCOHOL ---
HPI - Alcohol General Chief Complaint: Alcohol Stated Complaint: chest pain; chills; nausea Time Seen by Provider: 09/25/23 10:27 Source: patient Mode of arrival: ambulatory Limitations: no limitations History of Present Illness HPI narrative: 33-year-old female with alcoholism is wanting to quit drinking. She went to [facility] in [place] 2 days ago and was prescribed Ativan. She presented to the ER yesterday. She had blood work which revealed alcoholic hepatitis. She is discharged home on a Librium taper. She presents to the ER today with -- generalized shaking. She has had this for the past few days. She is attempting to decrease her alcohol consumption. -- Cough with mucopurulent sputum. The patient is a smoker. No pleuritic chest pain. No fever. -- Sore throat MD complaint: alcohol withdrawal Last drink: hours (ago) ( last drink yesterday) Amount of alcohol consumed: she drinks 2/5 of bottle daily Chronic alcohol use: Yes Previous visits for alcohol intoxication: Yes ( she was at [facility] in [place] 2 days ago. She was here ) Recent trauma: No Associated symptoms: denies other symptoms Treatments prior to arrival: other ( Librium) Related Data Home Medications Medication Instructions Recorded Confirmed fluoxetine 20 mg tablet 10 mg PO DAILY 11/21/21 09/25/23 ondansetron HCl 4 mg tablet 4 mg PRN PRN nausea/vomiting 09/24/23 09/25/23 Allergies Allergy/AdvReac Type Severity Reaction Status Date / Time sulfamethoxazole Allergy Mild Rash Verified 09/25/23 10:02 trimethoprim Allergy Mild Rash Verified 09/25/23 10:02 Review of Systems Review of Systems: All systems reviewed & are unremarkable except as noted in HPI and below Constitutional: Constitutional: Reports as per HPI, Reports no additional constitutional complaints and Reports weakness Eyes: Eyes: Reports as per HPI and Reports no additional eye complaints ENT: Reports system reviewed and no additional complaints, except as documented and Reports as per HPI Cardiovascular: Cardiovascular: Reports as per HPI and Reports no additional cardiovascular complaints Respiratory: Respiratory: Reports as per HPI and Reports no additional respiratory complaints Gastrointestinal: Gastrointestinal: Reports as per HPI and Reports no additional gastrointestinal complaints Genitourinary: Genitourinary: Reports no additional female genitourinary complaints and Reports as per HPI Musculoskeletal: Musculoskeletal: Reports no additional musculoskeletal complaints and Reports as per HPI Integumentary/Breasts: Skin/Breast: Reports system reviewed and no additional complaints, except as docu and Reports as per HPI Neurologic: Reports system reviewed and no additional complaints, except as documented and Reports as per HPI Psychiatric: Psychiatric: Reports no additional psychiatric complaints and Reports as per HPI Endocrine: Endocrine: Reports no additional endocrine complaints and Reports as per HPI Hematologic/Lymphatic: Hematologic/Lymphatic: Reports no additional hematologic/lymphatic complaints and Reports as per HPI Allergic/Immunologic: Allergic/Immunologic: Reports no additional allergic/immunologic complaints and Reports as per HPI [facility] Past Medical History Medical History (Updated 09/25/23 @ 11:53 by Cal Mart MD) Abnormal uterine bleeding (AUB) Anxiety Products of conception, retention Social History Social History Smoking packs per day: 0.5 Smoking cigarettes per day: 10.0 Years smoked: 1 Smoking pack-years: 0.50 Smoking status: Former smoker Tobacco type: cigarettes Smoking end date: 11/18/01 Alcohol intake: current Alcohol use details: A COUPLE/MONTH Substance use: never Substance use type: does not use Living arrangements: with family Additional living arrangements comments: CHILDREN Gender identity (if verbalized by
[2023-09-25] MEDS: ONDANSETRON HCL ODT 4 MG TABLET PO (10:56)
[2023-09-25] MEDS: LORazepam (*CRX) 1 MG TABLET PO (10:58)
--- NOTE | 2023-09-25 10:59 | PC.NURSE ---
PT IS SITTING UP ON STRETCHER WITHOUT DIFFICULTY. PT REQUESTED ZOFRAN, MEDICATION ADMINISTERED WITHOUT DIFFICULTY AT ORDERED. VALIUM WAS DC DUE TO NOT HAVING A RIDE HOME, ERP SWITCHED TO ATIVAN. ERP IS AWARE PT IS DRIVING HERSELF HOME, TO ADMINISTER DUE TO PT TREMORS. PT ADVISES SHE HAS TAKEN ATIVAN BEFORE AND HAS RX AT HOME. WILL CONTINUE TO MONITOR.
[2023-09-25 11:22] LABS: Strep Group A RT-PCR NOT DETECTED (Negative)
[2023-09-25 11:32] LABS: Influenza A QL RT-PCR Negative (Negative); Influenza B QL RT-PCR Negative (Negative); SARS-CoV-2 RNA PCR Negative (Negative)
[2023-09-25 11:35] LABS: RSV RNA, RT-PCR Negative (Negative)
--- NOTE | 2023-09-25 12:06 | PC.NURSE ---
PT SX HAVE IMPROVED. PT HANDS RN A PINT OF CAPTAIN POOLE TO DISPOSE OF THAT WAS 3/4 EMPTY. PT REPORTS SHE HAS TO QUIT DRINKING. PT'S TREMORS HAVE GREATLY IMPROVED.
== END 2023-09-25 12:00 | disposition home or self-care (01) ==
PROVIDERS: Emergency Provider Internal Medicine Critical Care Medicine; PCP Family Medicine
DX: F10.930 Alcohol use, unspecified with withdrawal, uncomplicated (principal); J06.9 Acute upper respiratory infection, unspecified; Z79.899 Other long term (current) drug therapy; Z87.891 Personal history of nicotine dependence; Z20.822 Contact with and (suspected) exposure to COVID-19
CPT/HCPCS: 71045; 87637; 87651; 99283; A9270

== ENCOUNTER 2023-10-25 20:00 | Emergency (ER) | payer OTHER, SELFPAY ==
--- NOTE | ~2023-10-25 | CT_ITS ---
EXAMINATION: CT facial bones wo con DATE: 10/25/2023 21:29 INDICATION: Frontal head pain. CSF leak. TECHNIQUE: Computed tomography (CT) of the facial bones and maxillofacial region was performed withou t intravenous contrast. Automated exposure control and iterative reconstruction technique were employ ed. The dose-length product was 367.15 mGy-cm. COMPARISON: head CT 12/28/21 FINDINGS: There is mucosal thickening in the paranasal sinuses, worst in right maxillary sinus where there is an air/fluid level. There is leftward deviation of the nasal septum. No fracture. There are areas of bone dehiscence in the frontal skull base adjacent to the paranasal sinuses. IMPRESSION: 1. Areas of bone dehiscence in the frontal skull base adjacent to the paranasal sinuses, unchanged fr om 12/28/21. Reviewed, dictated and finalized at location E. TRON BEAM MACHINE WELDER SETTER IMPRESSION: 1. Areas of bone dehiscence in the frontal skull base adjacent to the paranasal sinuses, unchanged from 12/28/21.
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
--- NOTE | ~2023-10-25 | CT_ITS ---
EXAMINATION: CT brain wo con DATE: 10/25/2023 20:24 INDICATION: Head injury. TECHNIQUE: Computed tomography (CT) of the head was performed without intravenous contrast. The mA wa s adjusted according to patient size. Iterative reconstruction technique was employed. The dose-lengt h product was 529.67 mGy-cm. COMPARISON: Head CT 12/28/2021 FINDINGS: There is no intracranial hemorrhage, acute infarction, or abnormal intracranial mass lesion . The ventricles are normal in size. There is mild mucosal thickening in the ethmoid sinuses. The mas toid air cells are normal. IMPRESSION: 1. Normal brain. Reviewed, dictated and finalized at location E. THERAPIST IMPRESSION: 1. Normal brain.
[2023-10-25 20:00] VITALS: BP 134/86; PULSE 105; RESP 20; TEMP 36.3; O2SAT 97
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
[2023-10-25 21:03] VITALS: BP 127/75; PULSE 98; RESP 20; O2SAT 99
--- NOTE | 2023-10-25 23:00 | PC.NURSE ---
AT BEDSIDE WITH DR HORAN, EDUCATION ON POSSIBLE CSF LEAK, TO FOLLOW UP WITH DR KNIGHT AT [facility]. ALL QUESTIONS ANSWERED.
--- NOTE | 2023-10-26 00:05 | PC.NURSE ---
AT BEDSIDE WITH DR HORAN FOR DISCUSSION WITH PATIENT. PATIENT STATED THAT SHE FEELS THAT SOMETHING IS WRONG AND WANTS TO GO TO ANOTHER FACILITY. PATIENT EDUCATED ON PLAN OF CARE AGAIN, THAT SHE IS TO FOLLOW UP WITH [facility] DR. LEONARD ON SATURDAY, UNTIL THEN TO WATCH FOR SIGNS OF INFECTION. PATIENT STATED THAT SHE IS COUGHING STUFF UP, WHICH SHE HAS BEEN WHILE SHE HAS BEEN HERE, FEELS THAT THERE IS SOMETHING MORE TO IT. DR HORAN, DID REASSURE PATIENT OF FINDINGS AND DISCUSSION WITH [facility], THAT THERE WAS NOT AN URGENT NEED FOR HER TO BE TRANSFERRED TO [facility] AT THIS TIME, HOWEVER IF SHE WOULD FEEL BETTER ABOUT IT, SHE CAN GO THERE, BUT ALL RESOURCES HAVE BEEN EXHAUSTED HERE AT THIS FACILITY. PATIENT VS ARE STABLE AT THIS TIME, NEURO FUNCTION IS INTACT.
== END 2023-10-26 00:08 | disposition home or self-care (01) ==
PROVIDERS: Emergency Provider Emergency Medicine; PCP Physician Assistant
DX: G96.00 Cerebrospinal fluid leak, unspecified (principal); Z79.899 Other long term (current) drug therapy; Z87.891 Personal history of nicotine dependence
CPT/HCPCS: 70450; 70486; 72125; 99284